=== PATIENT | male | born 1975 | race Two or more races ===

== ENCOUNTER 2021-03-03 05:45 | Emergency (ER) | payer MEDICAID ==
[~2021-03-03] VITALS: Ht 167.6 cm; Wt 81.6 kg
[2021-03-03 08:43] VITALS: BP 131/88
[2021-03-03] MEDS ORDERED: methylPREDNISolone SOD SUCC 125 MG/2 ML VL IM ONE (08:45)
[2021-03-03] MEDS ORDERED: cefTRIAXone SOD 1,000 MG VL IM ONE (08:45)
[2021-03-03] MEDS ORDERED: LIDOCAINE 1% HCL (LOCAL ANESTH.) INJ 20ML MDV ONE (08:58)
[2021-03-03] MEDS ORDERED: LIDOCAINE 1% HCL (LOCAL ANESTH.) INJ 20ML MDV ID ONE (09:30)
== END 2021-03-03 09:39 | disposition home or self-care (01) ==
LOC: ER 05:45
DX: J02.9 Acute pharyngitis, unspecified (principal); Z20.822 Contact with and (suspected) exposure to COVID-19
CPT/HCPCS: 36415; 87426; 96372; 99284; J0696; J2001; J2930